=== PATIENT | male | born 1965 | race Caucasian/White ===

== ENCOUNTER 2021-01-07 06:54 | Emergency (ER) | payer OTHER ==
--- NOTE | 2021-01-07 07:28 | EDM.PDOC ---
ED HPI GENERAL MEDICAL PROBLEM - General Chief Complaint: Lower Extremity Injury/Pain Stated Complaint: TWISTED LEFT ANKLE Time Seen by Provider: 01/07/21 07:15 Source of Information: Reports: Patient, RN. Denies: Old Records History Limitations: Reports: No Limitations - History of Present Illness INITIAL COMMENTS - FREE TEXT/NARRATIVE: 55 yo male here after and inversion injury to his L lateral ankle last night. He is able to walk on it today, but has lateral swelling and pain. No hx of ankle injuries. Is from [place]. 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: Reports: Other (see below) (none) Left Ankle Pain Score (Numeric/FACES): 2 - Related Data Allergies Allergy/AdvReac Type Severity Reaction Status Date / Time Penicillins Allergy Cannot Verified 01/07/21 07:10 Remember Home Meds: Home Meds amLODIPine [Norvasc] 5 mg PO DAILY 01/07/21 [History] lisinopriL [Lisinopril] 20 mg PO DAILY 01/07/21 [History] Past Medical History Cardiovascular History: Reports: Hypertension - Infectious Disease History Infectious Disease History: Reports: Chicken Pox Social & Family History - Tobacco Use Tobacco Use Status *Q: Never Tobacco User Second Hand Smoke Exposure: No - Caffeine Use Caffeine Use: Reports: Coffee - Alcohol Use Days Per Week of Alcohol Use: 2 Number of Drinks Per Day: 2 Total Drinks Per Week: 4 - Recreational Drug Use Recreational Drug Use: No Review of Systems - Review of Systems Review Of Systems: See Below Constitutional: Reports: No Symptoms Musculoskeletal: Reports: Joint Pain (L lateral ankle), Joint Swelling (lateral L ankle) Skin: Reports: No Symptoms Neurological: Reports: No Symptoms ED EXAM, GENERAL - Physical Exam Exam: See Below Exam Limited By: No Limitations General Appearance: Alert, WD/WN, No Apparent Distress Extremities: Pedal Edema (swelling over L lateral malleolus), Other (neg drawer sign. No prox fibula or 5th metatarsal pain. No medial ankle pain. ). No: Normal Inspection, Normal Range of Motion, Non-Tender, No Pedal Edema, Lc's Sign, Redness Neurological: Alert, Oriented, CN II-XII Intact, Normal Cognition, No Motor/Sensory Deficits Psychiatric: Normal Affect, Normal Mood Skin Exam: Warm, Dry, Intact, Normal Color, No Rash Course - Vital Signs Text/Narrative:: Air Cast type splint fitted. Last Recorded V/S: Last Vital Signs Temp 36.5 C 01/07/21 07:15 Pulse 107 H 01/07/21 07:15 Resp 16 01/07/21 07:15 BP 162/94 H 01/07/21 07:15 Pulse Ox 96 01/07/21 07:15 Departure - Departure Time of Disposition: 07:35 Disposition: Home, Self-Care 01 Condition: Good Clinical Impression: Ankle sprain Qualifiers: Encounter type: initial encounter Involved ligament of ankle: anterior talofibular ligament Laterality: left Qualified Code(s): S93.492A - Sprain of other ligament of left ankle, initial encounter - Discharge Information *PRESCRIPTION DRUG MONITORING PROGRAM REVIEWED*: Not Applicable *COPY OF PRESCRIPTION DRUG MONITORING REPORT IN PATIENT [place]ON[place]: Not Applicable Instructions: Ankle Sprain Referrals: PCP,None [Primary Care Provider] - Additional Instructions: Wear your splint for support with walking. Elevate to reduce swelling. Take acetaminophen or ibuprofen as needed. Recheck if not improving by a week. Sepsis Event Note (ED) - Evaluation Sepsis Screening Result: No Definite Risk - Focused Exam Vital Signs: Vital Signs Temp Pulse Resp BP Pulse Ox 01/07/21 07:15 36.5 C 107 H 16 162/94 H 96 01/07/21 07:08 36.5 C 107 H 16 162/94 H 96
== END 2021-01-07 07:36 | disposition home or self-care (01) ==
LOC: JP.ED 06:54
DX: S93.492A Sprain of other ligament of left ankle, initial encounter (principal); I10 Essential (primary) hypertension; Z79.899 Other long term (current) drug therapy; Z88.0 Allergy status to penicillin; X50.1XXA Overexertion from prolonged static or awkward postures, initial encounter
CPT/HCPCS: 99283; 99283-25